=== PATIENT | male | born 1995 | race Caucasian/White ===

== ENCOUNTER 2021-06-03 03:03 | Emergency (ER) | payer MEDICAID ==
[~2021-06-03] VITALS: Ht 172.7 cm; Wt 73.0 kg
[2021-06-03] MEDS ORDERED: ACETAMINOPHEN 325MG TABLET PO STA (04:13)
[2021-06-03 04:42] LABS: HEMATOCRIT. 43.4 % (42.0-52.0); HEMOGLOBIN. 15.1 g/dL (14.0-18.0); MEAN CORPUSCULAR HEMOGLOBIN 31.2 pg (28.0-32.0); MEAN CORPUSCULAR VOLUME 89.4 fL (80.0-94.0); MEAN PLATELET VOLUME 9.5 fl (7.4-10.4); NEUTROPHILS % 77.7 % (40.0-76.0); PLATELET 263 x1000/uL (130-400); RED BLOOD CELL COUNT 4.86 mill/uL (4.7-6.1); RED CELL DISTRIBUTION WIDTH 13.3 % (11.6-14.6)
[2021-06-03 04:43] LABS: BASOPHILS % 0.3 % (0.0-2.0); EOSINOPHILS % 2.1 % (0.0-5.0); LYMPHOCYTES % 14.2 % (20.0-50.0); MONOCYTES % 5.7 % (2.0-8.0)
[2021-06-03 04:53] LABS: CHLORIDE 105 mEq/L (98-107)
[2021-06-03 04:58] LABS: ETHANOL BLOOD < 10 mg/dL
[2021-06-03] MEDS ORDERED: IBUPROFEN 600MG TABLET PO STA (05:23)
[2021-06-03] MEDS ORDERED: SULF1TAB48 MT (06:15)
[2021-06-03] MEDS ORDERED: SULFAMETHOXAZOLE/TRIMETHOPRIM 800/160MG TABLET PO SCH (06:15)
[2021-06-03] MEDS ORDERED: CLIN300C12 MT (06:15)
[2021-06-03] MEDS ORDERED: IBUP-2029 PO (06:15)
[2021-06-03 06:46] VITALS: BP 126/73
[2021-06-03 07:19] LABS: CLARITY URINE CLEAR (CLEAR); COLOR URINE YELLOW (YELLOW); KETONES URINE TRACE (NEGATIVE); LEUKOCYTE ESTERASE URINE NEGATIVE (NEGATIVE); NITRITE URINE NEGATIVE (NEGATIVE); OCCULT BLOOD URINE TRACE (NEGATIVE); PROTEIN URINE 2+ (NEGATIVE); SPECIFIC GRAVITY URINE 1.027 (1.005-1.030); UROBILINOGEN URINE 0.2 E.U./dL (0.2-1.0)
[2021-06-03 07:52] LABS: *BARBITURATES SCREEN URINE NEGATIVE (NEGATIVE); *BENZODIAZEPINES SCREEN URINE NEGATIVE (NEGATIVE)
[2021-06-03 07:53] LABS: *COCAINE SCREEN URINE NEGATIVE (NEGATIVE); METHADONE URINE SCREEN NEGATIVE (NEGATIVE); OPIATES URINE SCREEN NEGATIVE (NEGATIVE); PHENCYCLIDINE URINE SCREEN PRESUMTIVE POSITIVE (NEGATIVE)
[2021-06-03 08:07] LABS: *AMPHETAMINES SCREEN URINE PRESUMTIVE POSITIVE (NEGATIVE); CANNABINOID URINE SCREEN NEGATIVE (NEGATIVE)
== END 2021-06-03 06:55 | disposition home or self-care (01) ==
LOC: ER 03:03
DX: S92.251A Displaced fracture of navicular [scaphoid] of right foot, initial encounter for closed fracture (principal); F41.0 Panic disorder [episodic paroxysmal anxiety]; L03.113 Cellulitis of right upper limb; X58.XXXA Exposure to other specified factors, initial encounter; Y93.89 Activity, other specified; Y92.89 Other specified places as the place of occurrence of the external cause; Y99.8 Other external cause status
CPT/HCPCS: 36415; 71045; 73130; 80053; 80305; 80320; 81003; 85025; 99284; Z7610; G0480